=== PATIENT | female | born 1940 | race Caucasian/White ===

== ENCOUNTER → 2023-07-13 | Outpatient (CLI) | payer MEDICARE, BC ==
--- NOTE | 2023-07-14 07:14 | XR ---
EXAMINATION TYPE: XR shoulder complete RT DATE OF EXAM: 07/13/2023 CLINICAL HISTORY: pain TECHNIQUE: Three views of the right shoulder are obtained. COMPARISON: None FINDINGS: There is no acute fracture/dislocation evident. The acromioclavicular and glenohumeral jennifer int spaces appear within normal limits. The visualized ribs are intact and unremarkable. IMPRESSION: 1. There is no acute fracture or dislocation. ICD 10 NO FRACTURE, INITIAL EVALUATION
--- NOTE | 2023-07-14 07:15 | XR ---
EXAMINATION TYPE: XR Hip Complete LT DATE OF EXAM: 07/13/2023 CLINICAL HISTORY: pain TECHNIQUE: AP and frogleg views of the left hip are obtained. COMPARISON: None. FINDINGS: There is no acute fracture/dislocation evident. The joint space appears within normal li mits. The overlying soft tissue appears unremarkable. IMPRESSION: 1. There is no acute fracture or dislocation.ICD 10 NO FRACTURE, INITIAL EVALUATION
== END | disposition home or self-care (01) ==
LOC: RADXRMAIN 15:33
PROVIDERS: ATTEND Physician Assistant
DX: M25.552 Pain in left hip (principal); M25.511 Pain in right shoulder
CPT/HCPCS: 73502

== ENCOUNTER → 2023-11-22 | Outpatient (CLI) | payer MEDICARE, BC ==
[2023-11-22 11:19] LABS: African American GFR (CKD) 75 (>60 ml/min/1.73 sqM); Blood Urea Nitrogen 23 mg/dL (7-17); Non-African American GFR(CKD) 65 (>60 ml/min/1.73 sqM)
--- NOTE | 2023-11-22 12:27 | CT ---
EXAMINATION TYPE: CT angio chest CT DLP: 364.1 mGycm, Automated exposure control for dose reduction was used. DATE OF EXAM: 11/22/2023 12:04 PM COMPARISON: None CLINICAL INDICATION:Female, 82 years old with history of I71.20 THORACIC AORTIC ANEURYSM; f/u thoraci c aneurysm TECHNIQUE/CONTRAST: CTA scan of the thorax is performed before and with IV Contrast, patient injected with 100 mL of Isov ue 370, aneurysm protocol. MIP and 3-D images are created and reviewed. FINDINGS: Lungs/Pleura: No evidence of focal consolidation, pleural effusion or pneumothorax. Linear scarring o r atelectasis within both lung bases. Airway: Large airways are patent. Heart: Enlarged heart. No pericardial effusion. Vasculature: The aortic root measures up to 4.0 cm. The ascending thoracic aorta measures up to 4.1 c m. Conventional three-vessel aortic arch. The descending thoracic aorta measures up to 2.8 cm. No int ramural hematoma or dissection identified. No evidence for pulmonary embolism. Mild stenosis at the o rigin of the celiac access due to noncalcified plaque. Mediastinum: No gross evidence of adenopathy. Musculoskeletal: No acute osseous abnormalities Soft Tissues: Bilateral calcified breast prostheses with intracapsular ruptures. Lower neck: Heterogenous appearance of the thyroid gland with small nodules suggested.. Upper Abdomen: Partial visualization of left renal cyst measuring at least 4.5 cm.. IMPRESSION: Mild aneurysmal dilatation of the aortic root and ascending thoracic aorta measuring up to 4.1 cm in greatest dimension. No evidence for intramural hematoma or aortic dissection.
== END | disposition home or self-care (01) ==
LOC: RADCTMAIN 10:40
PROVIDERS: ATTEND Internal Medicine Geriatric Medicine
DX: I71.20 Thoracic aortic aneurysm, without rupture, unspecified (principal); I71.21 Aneurysm of the ascending aorta, without rupture
CPT/HCPCS: 82565; 84520; 71275; 36415; Q9967

== ENCOUNTER → 2024-03-09 | Outpatient (CLI) | payer MEDICARE, BC ==
--- NOTE | 2024-03-10 19:03 | BD ---
EXAMINATION TYPE: Axial Bone Density DATE OF EXAM: 03/09/2024 CLINICAL HISTORY: 83 years old Female. ICD-10 CODE: M81.0 OSTEOPOROSIS Height: 5 ft 2 1/2 in Weight: 134 FRAX RISK QUESTIONS: Alcohol (3 or more units per day): no Family History (Parent hip fracture): yes Glucocorticoids (More than 3mos): no (Ex: prednisone, prednisolone, methylprednisolone, dexamethasone, and hydrocortisone). History of Fracture in Adulthood: yes Secondary Osteoporosis: 1. Type 1 Diabetes: no 2. Hyperthyroidism: no 3. Menopause before 45: no 4. Malnutrition: no 5. Chronic liver disease: no Rheumatoid Arthritis: no Current Tobacco Use: no RISK FACTORS HISTORY OF: History of Wrist Fracture: rt wrist When: 2 years ago Surgery to Spine/Hip(right/left)/Wrist (right/left): rt wrist When: 2 years MEDICATIONS: Thyroid Medications: none Osteoporosis Medications: none EXAM MEASUREMENTS: Bone mineral densitometry was performed using the [employer] System. Bone mineral density as measured about the Lumbar spine is: ----- L1-L4(G/cm2): 1.386 T Score Values are as follows: ----- L1: -0.2 ----- L2: 0.9 ----- L3: 2.7 ----- L4: 3.0 ----- L1-L4: 1.7 Z Score Values are as follows: ----- L1: 1.8 ----- L2: 2.9 ----- L3: 4.7 ----- L4: 5.0 ----- L1-L4: 3.7 prev done elsewhere Bone mineral density about the R hip (g/cm2): 0.730 Bone mineral density about the L hip (g/cm2): 0.710 T Score values are as follows: -----R Neck: -2.2 -----L Neck: -2.4 -----R Total: -2.4 -----L Total: -1.8 Z Score values are as follows: -----R Neck: 0.1 -----L Neck: 0.0 -----R Total: -0.2 -----L Total: 0.5 prev done elsewhere FRAX%s: The graph provided illustrates a 44.0 % chance for a major osteoporotic fx and a 30.7 % chanc e for the hips probability for fx in 10 years time. IMPRESSION: Osteopenia (T Score between -2.5 and -1). There is slightly increased risk of fracture and the patient may be considered for treatment. Re-Screen 2-5 years. NOTE: T-SCORE=SD OF THE YOUNG ADULT MEAN. [facility], , 03/10/2024 7:00 PM
== END | disposition home or self-care (01) ==
LOC: RADBDWWP 03-02 10:22
PROVIDERS: ATTEND Internal Medicine Geriatric Medicine
DX: Z53.9 Procedure and treatment not carried out, unspecified reason (principal)

== ENCOUNTER → 2024-03-29 | Outpatient (CLI) | payer MEDICARE, BC ==
--- NOTE | 2024-03-29 16:07 | US ---
EXAMINATION TYPE: US thyroid st tissue head/neck DATE OF EXAM: 03/29/2024 COMPARISON: NONE CLINICAL INDICATION: Female, 83 years old with history of R22.1 LOCALIZED SWELLING, MASS AND LUMP, NE CK; Lump in neck. TECHNIQUE: Grayscale and color Doppler imaging of the thyroid gland. FINDINGS: GLAND SIZE: Right Lobe: 4.2 x 1.3 x 1.5 cm Overall Parenchyma: heterogeneous Left Lobe: 4.6 x 1.4 x 1.3 cm Overall Parenchyma: heterogeneous Isthmus Thickness: 0.1 cm NODULES RIGHT: # of nodules measured on right: 2 1. 1.0 X 0.9 x 0.7 cm, upper mid Prior size: no prior TIRADS Score: 3 TIRADS Category 3: Composition: Mixed cystic and solid (1 point). Echogenicity: Hypoechoic (2 points). Shape: Wider than tall (0 points). Margin: Smooth (0 points). Echogenic foci: None or large comet-tail artifacts (0 points) Recommendation: If >2.5cm: FNA; If >1.5cm: Follow up at 1,3,5 years 2. 1.3 X 1.0 x 0.8 cm, mid medial, Prior size: no prior TIRADS Score: 3 TIRADS Category 3: Composition: Solid or almost completely solid (2 points). Echogenicity: Hyperechoic or isoechoic (1 point). Shape: Wider than tall (0 points). Margin: Smooth (0 points). Echogenic foci: None or large comet-tail artifacts (0 points) Recommendation: If >2.5cm: FNA; If >1.5cm: Follow up at 1,3,5 years LEFT: # of nodules measured on left: 1 1. 1.4 X 1.1 x 1.1 cm, lower mid, Prior size: no prior TIRADS Score: 4 TIRADS Category 4: Composition: Solid or almost completely solid (2 points). Echogenicity: Hypoechoic (2 points). Shape: Wider than tall (0 points). Margin: Smooth (0 points). Echogenic foci: None or large comet-tail artifacts (0 points) Recommendation: If >1.5cm: FNA; If >1cm: Follow up at 1,2, 3,5 years ISTHMUS: # of nodules measured in the isthmus: 0 Bilateral neck scanned, no evidence of lymphadenopathy. IMPRESSION: Thyroid nodules that meet criteria for follow-up by size criteria. [facility], , 03/29/2024 4:05 PM
== END | disposition home or self-care (01) ==
LOC: RADUSWWP 14:41
PROVIDERS: ATTEND Internal Medicine Geriatric Medicine
DX: E04.2 Nontoxic multinodular goiter (principal)
CPT/HCPCS: 76536

== ENCOUNTER → 2024-12-05 | Outpatient (CLI) | payer MEDICARE, BC ==
[2024-12-05 12:45] LABS: Basophils # (A) 0.05 10*3/uL (0.00-0.10); Eosinophils # (A) 0.13 10*3/uL (0.04-0.35); Eosinophils % (A) 2.6 %; HCT 38.2 % (37.2-46.3); HGB 13.1 g/dL (12.0-15.0); Lymphocytes # (A) 1.69 10*3/uL (0.90-5.00); Lymphocytes % (A) 33.2 %; MCH 35.8 pg (27.0-32.0); MCHC 34.3 g/dL (32.0-37.0); MCV 104.4 fL (80.0-97.0); Mean Platelet Volume 10.4 fL (9.5-12.2); Monocytes # (A) 0.61 10*3/uL (0.20-1.00); Platelet Count 238 10*3/uL (140-440); RBC 3.66 10*6/uL (4.10-5.20); RDW 13.7 % (11.5-14.5); WBC 5.09 10*3/uL (4.50-10.00)
[2024-12-05 12:56] LABS: ALT 39 U/L (4-34); AST 51 U/L (14-36); African American GFR (CKD) >90 (>60 ml/min/1.73 sqM); Albumin 4.6 g/dL (3.5-5.0); Albumin/Globulin Ratio 2.2; Alkaline Phosphatase 99 U/L (38-126); Anion Gap 8 mmol/L; Blood Urea Nitrogen 15 mg/dL (7-17); Calcium 10.3 mg/dL (8.4-10.2); Carbon Dioxide 29 mmol/L (22-30); Chloride 102 mmol/L (98-107); Globulin 2.1 g/dL; Glucose 104 mg/dL (74-99); Non-African American GFR(CKD) 82 (>60 ml/min/1.73 sqM); Potassium 4.8 mmol/L (3.5-5.1); Sodium 139 mmol/L (137-145); Total Bilirubin 0.5 mg/dL (0.2-1.3); Total Protein 6.7 g/dL (6.3-8.2)
[2024-12-05 13:22] LABS: C Reactive Protein <0.5 mg/dL (<1.0)
--- NOTE | 2024-12-05 13:41 | CT ---
EXAMINATION TYPE: CT angio chest CT DLP: 339.0 mGycm, Automated exposure control for dose reduction was used. DATE OF EXAM: 12/05/2024 1:30 PM COMPARISON: CTA chest 11/22/2023 CLINICAL INDICATION:Female, 83 years old with history of I71.20, M19.90; Monitoring aneurysm TECHNIQUE/CONTRAST: CTA scan of the thorax is performed without and with IV Contrast, patient injected with 100 mL of Iso param 370. 3D reconstructed images are created on an independent workstation and reviewed.. FINDINGS: Lungs/Pleura: No evidence of focal consolidation, pleural effusion or pneumothorax. Mild bibasilar li near scarring redemonstrated. No suspicious pulmonary nodule or mass. Airway: Large airways are patent. Heart: Enlarged heart. No pericardial effusion. No significant coronary arterial calcifications. Vasculature: The aortic root measures up to 3.7 cm. Previously 4.0 centimeters. The ascending thoraci c aorta measures up to 4.3 cm, Previously 4.1 cm. Conventional three-vessel aortic arch. The descendi ng thoracic aorta measures up to 2.8 cm again. No intramural hematoma or dissection identified. No ev idence for pulmonary embolism. Mild stenosis at the origin of the celiac artery due to noncalcified p laque. Mediastinum: No evidence of adenopathy. Musculoskeletal: No acute osseous abnormalities. Mild multilevel degenerative disc disease. Soft Tissues: Bilateral calcified breast prostheses with intracapsular ruptures are demonstrated. Lower neck: Heterogenous appearance of the thyroid gland with inferior left thyroid lobe heterogenous hypodense 8 mm nodule. Upper Abdomen: Partial visualization of left renal cyst again. No follow-up recommended. IMPRESSION: Marginal increase in size of ascending thoracic aortic aneurysm measuring up to 4.3 cm, previously 4. 1 cm. Ectasia of the aortic root measuring up to 3.7 cm, previously 4.0 cm. No evidence for intramura l hematoma or aortic dissection. [facility], , 12/05/2024 1:39 PM
[2024-12-05 16:54] LABS: Erythrocyte Sedimentation Rate 7 mm/Hr (0-30)
== END | disposition home or self-care (01) ==
LOC: RADCTMAIN 11:57
PROVIDERS: ATTEND Internal Medicine Geriatric Medicine
DX: I71.21 Aneurysm of the ascending aorta, without rupture (principal); M19.90 Unspecified osteoarthritis, unspecified site
CPT/HCPCS: 80053; 85652; 85025; 86140; 71275; 36415; Q9967

== ENCOUNTER → 2024-12-14 | Outpatient (CLI) | payer MEDICARE, BC ==
--- NOTE | 2024-12-14 09:35 | US ---
EXAMINATION TYPE: US carotid duplex BILAT DATE OF EXAM: 12/14/2024 COMPARISON: NONE CLINICAL INDICATION: Female, 83 years old with history of R42 DIZZINESS AND GIDDINESS; dizziness Additional History: R42* Dizziness TECHNIQUE: Grayscale, color Doppler and spectral Doppler evaluation of the bilateral carotid systems and vertebral arteries. Indirect Doppler criteria was utilized. FINDINGS: EXAM MEASUREMENTS: RIGHT: Peak Systolic Velocity (PSV) cm/sec ----- Right CCA: 55.9 ----- Right ICA: 58.2 ----- Right ECA: 57.8 ICA/CCA ratio: 1.0 RIGHT: End Diastole cm/sec ----- Right CCA: 24.6 ----- Right ICA: 28.0 ----- Right ECA: 25.9 LEFT: Peak Systolic Velocity (PSV) cm/sec ----- Left CCA: 50.3 ----- Left ICA: 68.6 ----- Left ECA: 72.7 ICA/CCA ratio: 1.4 LEFT: End Diastole cm/sec ----- Left CCA: 20.6 ----- Left ICA: 25.7 ----- Left ECA: 23.8 VERTEBRALS (direction of flow): Right Vertebral: Antegrade Left Vertebral: Antegrade Rhythm: Normal MACHINE FIXER NOTES: small amount of plaque in left prox ICA Color Doppler imaging shows patency with blood flow throughout the carotid artery. Spectral waveforms are within normal limits. IMPRESSION: No evidence for hemodynamically significant stenosis Criteria for Assigning % of Stenosis / Diameter reduction (Estimation based on the indirect measurements of the internal carotid artery velocities (ICA PSV). 1. Normal (no stenosis)=ICA PSV < 180 cm/s: ratio < 2.0: ICA EDV<40 cm/s. 2. Less than 50% stenosis=ICA PSV < 180 cm/s: ratio < 2.0: ICA EDV<40 cm/s. 3. 50 to 69% stenosis=ICA PSV of 180 to 230 cm/s: ration 2.0 ? 4.0: ICA EDV 40-100 cm/s. PSV 125-180 cm/sec and ICA/CCA PSV Ratio ? 2.0 is also consistent with 50-69% stenosis 4. Greater than 70% stenosis to near occlusion= ICA PSV > 230 cm/s: ratio > 4.0: ICA EDV > 100 cm/s. 5. Near occlusion= ICA PSV velocities may be low or undetectable: variable ratio and ICA EDV. 6. Total occlusion=unable to detect flow. [facility], , 12/14/2024 9:32 AM
== END | disposition home or self-care (01) ==
LOC: RADUSWWP 07:58
PROVIDERS: ATTEND Internal Medicine Geriatric Medicine
DX: R42 Dizziness and giddiness (principal)
CPT/HCPCS: 93880